=== PATIENT | male | born 1955 | race Caucasian/White ===

== ENCOUNTER → 2020-11-24 14:21 | Outpatient (CLI) | payer BC, SELFPAY ==
[2020-11-24 15:36] LABS: Basophils # 0.1 K/mm3 (0-0.2); Basophils % 1.1 % (0.1-2.0); Eosinophils # 0.4 K/mm3 (0.0-0.4); Eosinophils % 6.6 % (0.1-12.0); Hematocrit 50.6 % (42.0-52.0); Lymphocytes # 1.5 K/mm3 (0.7-4.5); Lymphocytes % 26.2 % (10-50); Mean Corpuscular HGB Conc 33.6 g/dL (31.8-35.4); Mean Corpuscular Hemoglobin 32.3 pg (27.0-31.2); Mean Corpuscular Volume 96.1 fl (80-94); Monocytes # 0.5 K/mm3 (0.1-1.0); Monocytes % 8.6 % (1.7-9.3); Neutrophils # 3.3 K/mm3 (1.8-7.8); Neutrophils % 57.5 % (37.0-80.0); Platelet Count 186 K/mm3 (142-424); Red Blood Count 5.27 M/mm3 (4.60-6.20); Red Cell Distribution Width 13.4 % (11.5-17.5); White Blood Count 5.7 K/mm3 (4.8-10.8)
[2020-11-24 15:40] LABS: Alanine Aminotransferase 30 U/L (12-78); Albumin Level 4.2 g/dl (3.5-5.0); Albumin/Globulin Ratio 1.6 (1.1-1.8); Alkaline Phosphatase 98 U/L (38-126); Anion Gap 10.3 mEq/L (5-15); Aspartate Amino Transferase 29 U/L (17-59); Bilirubin,Total 1.1 mg/dl (0.2-1.3); Blood Urea Nitrogen 21 mg/dl (9-20); Calcium 9.6 mg/dl (8.4-10.2); Carbon Dioxide 25 mmol/L (22.0-30.0); Chloride 108 mmol/L (98-107); Chol/HDL Ratio 3.5 (1-3.5); Cholesterol 105 mg/dl (140-200); Estimated Glomerular Filt Rate 85 ml/min (>60); GFR (African American) 103 ML/MIN (>60); Globulin 2.7 g/dL (1.3-3.2); Glucose 165 mg/dl (74-100); HDL Cholesterol 30 mg/dl (40-60); Potassium 4.3 mmoL/L (3.5-5.1); Sodium 139 mmol/L (136-145); Total Protein,Serum 6.9 g/dl (6.3-8.2); Triglycerides 126 mg/dl (30-150); VLDL Cholesterol 25 mg/dL (0-40)
[2020-11-24 17:09] LABS: Hemoglobin A1C 8.6 % (4.0-6.0)
[2020-11-26 18:14] LABS: Prostate Specific Ag 0.4 ng/mL (0.0-4.0)
== END ==
PROVIDERS: Visit Provider Family Medicine
DX: E11.9 Type 2 diabetes mellitus without complications (principal); E78.5 Hyperlipidemia, unspecified; I10 Essential (primary) hypertension; Z72.0 Tobacco use; Z79.84 Long term (current) use of oral hypoglycemic drugs; Z12.5 Encounter for screening for malignant neoplasm of prostate
CPT/HCPCS: 80053; 80061; 83036; 84153; 84154; 85025

== ENCOUNTER → 2020-12-13 14:42 | Outpatient (CLI) | payer BC, SELFPAY ==
[2020-12-13 17:08] LABS: Coronavirus 19 IgG Antibody Negative (Negative); Coronavirus 19 IgM Antibody Negative (Negative)
== END ==
PROVIDERS: PCP Family Medicine; Visit Provider Internal Medicine Gastroenterology
DX: Z01.812 Encounter for preprocedural laboratory examination (principal); Z20.822 Contact with and (suspected) exposure to COVID-19; Z12.11 Encounter for screening for malignant neoplasm of colon
CPT/HCPCS: 36415; 86328

== ENCOUNTER 2020-12-15 08:31 | Day surgery (SDC) | payer BC, SELFPAY ==
[2020-12-12 08:39] VITALS: BMI 29.4
[2020-12-15] VITALS (8 sets, daily range): BP systolic 112–143; BP diastolic 75–89; PULSE 47–57; RESP 18; TEMP 36.2–36.6; O2SAT 95–97
[2020-12-15 09:20] LABS: POC Glucose,Bedside 107 (70-110)
--- NOTE | 2020-12-15 09:57 | P.PN_ITS ---
[facility] Anesthesia Checklist - Patient Identification Patient Identification: Arm Band - Structural Data Admitted From: Home Planned Operative Procedure/s: colonoscopy Consent for Planned Operative Procedure(s) Verified: Yes Verified Documents: Surgical Consent, History and Physical - NPO Status Verified Time NPO: 00:00 - Additional verifications Anesthesia Reactions: No - Airway Assessment C-Spine Mobility Assessed: Yes (mp3) TMJ Mobility Assessed: Yes Dentition: Good Dentition - Neurological Assessment Level of Consciousness: Awake, Alert - Anesthesia Plan Anesthesia Risk discussed: Yes Anesthesia Plan: Verified ASA Class: III Anesthesia Type: MAC [facility] History I have reviewed the patient's past medical history: Yes Medical History: Reports:: Asthma, Coronary Artery Disease, Diabetes Mellitus Type 2, Gastroesophageal Reflux Disease(GERD), Hyperlipidemia, Hypertension Denies:: Cancer, Diabetes Mellitus Type 1, Internal Pacemaker, MRSA, Seizures *Have you ever received a pneumonia vaccine?: No *Have you received a flu vaccine this season?: No Anesthesia experience/problems:: nac Laterality Cases: Right: Total Knee Replacement Other Surgeries: Yes: Hernia Repair, Other. No: Pacemaker Amputation: No Fractures: No - *Social History Last grade of school completed: Some college Smoking Status: Current every day smoker Tobacco Type: cigarettes # Packs/Day (cigarettes): 1 Alcohol Intake: never Substance Use Type: denies use *Occupational Status:: employed *Travel in the last 8 weeks: None Family Hx:: No significant family history
--- NOTE | 2020-12-15 10:18 | P.PCN_ITS ---
[facility] Procedure Note Procedure Note:: Colonoscopy Procedure Report: Colonoscopy with cold snare polypectomy and hemorrhoid band ligation Endoscopist: Zoran Macias II, MD Referring physician: Ortzi Cavazos MD Date of Procedure: December 15, 2020 Equipment: Olympus 180 variable stiffness pediatric colonoscope Sedation: MAC sedation Indication: Mr. Hudson is a 65-year-old gentleman with rectal bleeding over the last 2 weeks. This was blood in the commode as well as on the toilet tissue. This was new. The patient has had in the past extremely rare spotting of blood on the toilet tissue. He does get some intermittent gassiness. He had initiated Metformin and lost between 5 and 10 pounds. He reports no abdominal pain, change in his bowel habits or family history of colon cancer. This is his first colonoscopy which is done for diagnostic purposes. Procedure: Prior to the procedure, a history and physical exam was performed, and patient's medications and allergies were reviewed. The risks, benefits and alternatives of the sedation and procedure were discussed with the patient. All questions were answered and informed consent was obtained. The patient was brought to the procedure room. Patient identification and proposed procedure were verified by the physician and the nurse. The patient was placed in a left lateral decubitus position and the scope was passed under direct vision. Throughout the procedure, the patient's blood pressure, pulse, and oxygen saturations were monitored continuously. The colonoscopy was accomplished without difficulty. The patient tolerated the procedure well. Findings: On digital rectal examination there was normal rectal tone. There were no external hemorrhoids. The prostate was moderately firm and mildly asymmetric without nodules. The colonoscope was introduced through the anal canal to the rectum and advanced to the cecum. The ileocecal valve and appendiceal orifice w ere identified. The scope was advanced a short distance into the ileum which appeared grossly normal. The scope was then withdrawn into the colon. There were 4 colon polyps (cecum x1 (5 mm), transverse x1 (4 mm), descending x1 (4 mm) and rectosigmoid x1 (5 mm)) which were all removed via cold snare polypectomy. There were scattered diverticuli throughout the descending and sigmoid colon (LEFT colon). The rectum itself was normal. Upon retroflexion within the rectum there were grade 2 internal hemorrhoids. These hemorrhoids were banded (3 columns) with 3 bands with excellent ligation effect. The preparation was excellent throughout with [place] Preparation Score of 9. The cecal time was 15 minutes. Impression: 1. Colonic polyps x4 2. Left-sided diverticulosis 3. Grade 2 internal hemorrhoids status post band ligation x3 4. Firm/mildly asymmetric prostate Plan: I will follow up the polyp pathology and recommend repeat colonoscopy again in 5 years based upon the polyp histology. I would encourage bulk fiber supplementation on a long-term daily maintenance basis.
== END 2020-12-15 11:22 | disposition home or self-care (01) ==
LOC: OUTP 08:32
PROVIDERS: PCP Family Medicine; Visit Provider Internal Medicine Gastroenterology
PROC: 0DJD8ZZ Inspection of Lower Intestinal Tract, Via Natural or Artificial Opening Endoscopic (ICD-10-PCS; CPT 45378; principal; 2020-12-15 09:30)
DX: K63.5 Polyp of colon; K57.30 Diverticulosis of large intestine without perforation or abscess without bleeding; K64.1 Second degree hemorrhoids; J45.909 Unspecified asthma, uncomplicated; E11.9 Type 2 diabetes mellitus without complications; I25.10 Atherosclerotic heart disease of native coronary artery without angina pectoris; K21.9 Gastro-esophageal reflux disease without esophagitis; E78.5 Hyperlipidemia, unspecified; I10 Essential (primary) hypertension; Z72.0 Tobacco use; Z79.82 Long term (current) use of aspirin; Z79.899 Other long term (current) drug therapy
CPT/HCPCS: 45385; 45398; 82962

== ENCOUNTER → 2021-01-08 14:41 | Outpatient (CLI) | payer BC, SELFPAY ==
[2021-01-08 18:03] LABS: Basophils % 0.7 % (0.1-2.0); Eosinophils # 0.2 K/mm3 (0.0-0.4); Eosinophils % 3.6 % (0.1-12.0); Hematocrit 47.2 % (42.0-52.0); Hemoglobin 16.1 g/dL (14.1-18.0); Lymphocytes % 15.2 % (10-50); Mean Corpuscular HGB Conc 34.1 g/dL (31.8-35.4); Mean Corpuscular Hemoglobin 31.8 pg (27.0-31.2); Mean Corpuscular Volume 93.4 fl (80-94); Mean Platelet Volume 10.9 fl (7.4-10.4); Monocytes # 0.4 K/mm3 (0.1-1.0); Monocytes % 6.7 % (1.7-9.3); Neutrophils # 4.8 K/mm3 (1.8-7.8); Neutrophils % 73.9 % (37.0-80.0); Platelet Count 210 K/mm3 (142-424); Red Blood Count 5.06 M/mm3 (4.60-6.20); Red Cell Distribution Width 13.3 % (11.5-17.5); White Blood Count 6.5 K/mm3 (4.8-10.8)
[2021-01-08 18:27] LABS: Chloride 111 mmol/L (98-107)
[2021-01-08 18:28] LABS: Potassium 4.5 mmoL/L (3.5-5.1); Sodium 141 mmol/L (136-145)
[2021-01-08 18:30] LABS: Blood Urea Nitrogen 21 mg/dl (9-20)
[2021-01-08 18:31] LABS: Alanine Aminotransferase 24 U/L (12-78); Albumin Level 4.3 g/dl (3.5-5.0); Albumin/Globulin Ratio 1.6 (1.1-1.8); Alkaline Phosphatase 90 U/L (38-126); Anion Gap 12.5 mEq/L (5-15); Aspartate Amino Transferase 23 U/L (17-59); Bilirubin,Total 0.7 mg/dl (0.2-1.3); Calcium 9.6 mg/dl (8.4-10.2); Carbon Dioxide 22 mmol/L (22.0-30.0); Cholesterol 99 mg/dl (140-200); Estimated Glomerular Filt Rate 98 ml/min (>60); GFR (African American) 118 ML/MIN (>60); Globulin 2.7 g/dL (1.3-3.2); Glucose 136 mg/dl (74-100); Triglycerides 86 mg/dl (30-150); VLDL Cholesterol 17 mg/dL (0-40)
[2021-01-08 18:32] LABS: Chol/HDL Ratio 3.2 (1-3.5); HDL Cholesterol 31 mg/dl (40-60)
[2021-01-08 18:42] LABS: Direct LDL Cholesterol 49.94 mg/dL (100-129)
[2021-01-08 19:02] LABS: Thyroid Stimulating Hormone 1.86 uIU/mL (0.465-4.68)
[2021-01-08 19:35] LABS: Hemoglobin A1C 6.8 % (4.0-6.0)
== END ==
PROVIDERS: Visit Provider Family Medicine
DX: E11.9 Type 2 diabetes mellitus without complications (principal); Z79.84 Long term (current) use of oral hypoglycemic drugs; I10 Essential (primary) hypertension; E78.5 Hyperlipidemia, unspecified
CPT/HCPCS: 80053; 80061; 83036; 84436; 84443; 85025

== ENCOUNTER → 2022-02-21 08:04 | Outpatient (CLI) | payer BC, SELFPAY ==
[2022-02-21 14:17] LABS: Alanine Aminotransferase 26 U/L (12-78); Albumin Level 4.3 g/dl (3.5-5.0); Albumin/Globulin Ratio 1.7 (1.1-1.8); Alkaline Phosphatase 75 U/L (38-126); Anion Gap 10.6 mEq/L (5-15); Aspartate Amino Transferase 28 U/L (17-59); Bilirubin,Total 0.9 mg/dl (0.2-1.3); Blood Urea Nitrogen 19 mg/dl (9-20); Calcium 9.2 mg/dl (8.4-10.2); Carbon Dioxide 26 mmol/L (22.0-30.0); Chloride 109 mmol/L (98-107); Chol/HDL Ratio 3.5 (1-3.5); Cholesterol 102 mg/dl (140-200); Estimated Glomerular Filt Rate 85 ml/min (>60); GFR (African American) 103 ML/MIN (>60); Globulin 2.6 g/dL (1.3-3.2); Glucose 144 mg/dl (74-100); HDL Cholesterol 29 mg/dl (40-60); Potassium 4.6 mmoL/L (3.5-5.1); Sodium 141 mmol/L (136-145); Total Protein,Serum 6.9 g/dl (6.3-8.2); Triglycerides 108 mg/dl (30-150); VLDL Cholesterol 22 mg/dL (0-40)
[2022-02-21 14:29] LABS: Basophils # 0.1 K/mm3 (0-0.2); Eosinophils # 0.3 K/mm3 (0.0-0.4); Eosinophils % 5.7 % (0.1-12.0); Hematocrit 48.9 % (42.0-52.0); Hemoglobin 16.3 g/dL (14.1-18.0); Lymphocytes # 0.8 K/mm3 (0.7-4.5); Lymphocytes % 15.4 % (10-50); Mean Corpuscular HGB Conc 33.4 g/dL (31.8-35.4); Mean Corpuscular Hemoglobin 32.1 pg (27.0-31.2); Mean Corpuscular Volume 96.1 fl (80-94); Mean Platelet Volume 11.6 fl (7.4-10.4); Monocytes # 0.4 K/mm3 (0.1-1.0); Monocytes % 7.4 % (1.7-9.3); Neutrophils # 3.7 K/mm3 (1.8-7.8); Neutrophils % 70.5 % (37.0-80.0); Platelet Count 226 K/mm3 (142-424); Red Blood Count 5.09 M/mm3 (4.60-6.20); Red Cell Distribution Width 13.6 % (11.5-17.5); White Blood Count 5.3 K/mm3 (4.8-10.8)
[2022-02-21 14:34] LABS: 25-OH Vitamin D, Total 23.4 ng/mL (30-100); Hemoglobin A1C 6.5 % (4.0-6.0)
[2022-02-21 14:35] LABS: T4 (Thyroxine) 9.3 ug/dl (5.53-11.0)
[2022-02-23 18:12] LABS: C-Peptide 3.7 ng/mL (1.1-4.4)
== END ==
PROVIDERS: Visit Provider Family Medicine
DX: E11.9 Type 2 diabetes mellitus without complications (principal); E55.9 Vitamin D deficiency, unspecified; Z79.84 Long term (current) use of oral hypoglycemic drugs; Z79.899 Other long term (current) drug therapy
CPT/HCPCS: 80053; 80061; 82306; 83036; 84436; 84443; 84681; 85025

== ENCOUNTER → 2022-09-13 14:25 | Outpatient (CLI) | payer BC, SELFPAY ==
[2022-09-13 20:51] LABS: Alanine Aminotransferase 32 U/L (12-78); Albumin Level 4.3 g/dl (3.5-5.0); Albumin/Globulin Ratio 1.7 (1.1-1.8); Alkaline Phosphatase 131 U/L (38-126); Anion Gap 16.1 mEq/L (5-15); Aspartate Amino Transferase 28 U/L (17-59); Bilirubin,Total 1.1 mg/dl (0.2-1.3); Blood Urea Nitrogen 17 mg/dl (9-20); Calcium 9.6 mg/dl (8.4-10.2); Carbon Dioxide 24 mmol/L (22.0-30.0); Chloride 104 mmol/L (98-107); Chol/HDL Ratio 3.7 (1-3.5); Cholesterol 111 mg/dl (140-200); Estimated Glomerular Filt Rate 97 ml/min (>60); GFR (African American) 118 ML/MIN (>60); Globulin 2.6 g/dL (1.3-3.2); Glucose 128 mg/dl (74-100); HDL Cholesterol 30 mg/dl (40-60); Potassium 4.1 mmoL/L (3.5-5.1); Sodium 140 mmol/L (136-145); Total Protein,Serum 6.9 g/dl (6.3-8.2); Triglycerides 131 mg/dl (30-150); VLDL Cholesterol 26 mg/dL (0-40)
[2022-09-13 20:54] LABS: Basophils # 0.1 K/mm3 (0-0.2); Basophils % 1.1 % (0.1-2.0); Eosinophils # 0.5 K/mm3 (0.0-0.4); Eosinophils % 6.9 % (0.1-12.0); Hematocrit 47.8 % (42.0-52.0); Hemoglobin 15.7 g/dL (14.1-18.0); Lymphocytes # 1.2 K/mm3 (0.7-4.5); Lymphocytes % 17.2 % (10-50); Mean Corpuscular HGB Conc 32.8 g/dL (31.8-35.4); Mean Corpuscular Hemoglobin 31.8 pg (27.0-31.2); Mean Corpuscular Volume 96.8 fl (80-94); Mean Platelet Volume 11.7 fl (7.4-10.4); Monocytes # 0.6 K/mm3 (0.1-1.0); Monocytes % 8.5 % (1.7-9.3); Neutrophils # 4.6 K/mm3 (1.8-7.8); Neutrophils % 66.3 % (37.0-80.0); Platelet Count 214 K/mm3 (142-424); Red Blood Count 4.94 M/mm3 (4.60-6.20); Red Cell Distribution Width 13.6 % (11.5-17.5)
[2022-09-13 21:02] LABS: Direct LDL Cholesterol 59.98 mg/dL (100-129)
[2022-09-13 21:12] LABS: Hemoglobin A1C 6.7 % (4.0-6.0)
== END ==
PROVIDERS: PCP Family Medicine; Visit Provider Family Medicine
DX: E11.9 Type 2 diabetes mellitus without complications (principal); R53.83 Other fatigue; Z79.84 Long term (current) use of oral hypoglycemic drugs
CPT/HCPCS: 80053; 80061; 83036; 85025

== ENCOUNTER → 2023-07-04 00:16 | Outpatient (CLI) | payer MEDICARE, SELFPAY ==
[2023-07-03 19:10] LABS: Basophils # 0.1 K/mm3 (0-0.2); Basophils % 0.7 % (0.1-2.0); Eosinophils # 0.5 K/mm3 (0.0-0.4); Eosinophils % 6.6 % (0.1-12.0); Hematocrit 49.7 % (42.0-52.0); Lymphocytes # 1.3 K/mm3 (0.7-4.5); Mean Corpuscular HGB Conc 34.2 g/dL (31.8-35.4); Mean Corpuscular Hemoglobin 31.8 pg (27.0-31.2); Mean Platelet Volume 11.3 fl (7.4-10.4); Monocytes # 0.6 K/mm3 (0.1-1.0); Monocytes % 8.3 % (1.7-9.3); Neutrophils # 4.9 K/mm3 (1.8-7.8); Neutrophils % 66.4 % (37.0-80.0); Platelet Count 208 K/mm3 (142-424); Red Blood Count 5.34 M/mm3 (4.60-6.20); White Blood Count 7.4 K/mm3 (4.8-10.8)
[2023-07-03 19:35] LABS: Alanine Aminotransferase 36 U/L (12-78); Albumin Level 4.6 g/dl (3.5-5.0); Albumin/Globulin Ratio 1.6 (1.1-1.8); Alkaline Phosphatase 119 U/L (38-126); Anion Gap 17.3 mEq/L (5-15); Aspartate Amino Transferase 28 U/L (17-59); Bilirubin,Total 0.8 mg/dl (0.2-1.3); Blood Urea Nitrogen 15 mg/dl (9-20); Calcium 9.4 mg/dl (8.4-10.2); Carbon Dioxide 24 mmol/L (22.0-30.0); Chloride 105 mmol/L (98-107); Chol/HDL Ratio 3.7 (1-3.5); Cholesterol 100 mg/dl (140-200); Estimated Glomerular Filt Rate 85 ml/min (>60); GFR (African American) 102 ML/MIN (>60); Globulin 2.9 g/dL (1.3-3.2); Glucose 149 mg/dl (74-100); HDL Cholesterol 27 mg/dl (40-60); Potassium 4.3 mmoL/L (3.5-5.1); Sodium 142 mmol/L (136-145); Total Protein,Serum 7.5 g/dl (6.3-8.2); Triglycerides 185 mg/dl (30-150); VLDL Cholesterol 37 mg/dL (0-40)
[2023-07-03 19:47] LABS: Direct LDL Cholesterol 51.25 mg/dL (100-129)
[2023-07-03 20:06] LABS: Prostate Specific Ag Screen 0.5 ng/ml (0.0-4.0); Thyroid Stimulating Hormone 1.39 uIU/mL (0.465-4.68)
[2023-07-03 21:32] LABS: Hemoglobin A1C 9.2 % (4.0-6.0)
== END ==
PROVIDERS: PCP Family Medicine; Visit Provider Family Medicine
DX: Z00.00 Encounter for general adult medical examination without abnormal findings; E11.9 Type 2 diabetes mellitus without complications; N52.9 Male erectile dysfunction, unspecified; Z12.5 Encounter for screening for malignant neoplasm of prostate; Z79.84 Long term (current) use of oral hypoglycemic drugs
CPT/HCPCS: 80053; 80061; 83036; 84443; 85025; G0103

== ENCOUNTER → 2023-09-09 13:21 | Outpatient (CLI) | payer MEDICARE, SELFPAY ==
[2023-09-09 14:21] LABS: Basophils % 0.6 % (0.1-2.0); Eosinophils # 0.4 K/mm3 (0.0-0.4); Eosinophils % 6.6 % (0.1-12.0); Hematocrit 47.5 % (42.0-52.0); Hemoglobin 16.9 g/dL (14.1-18.0); Mean Corpuscular HGB Conc 35.5 g/dL (31.8-35.4); Mean Corpuscular Hemoglobin 33.1 pg (27.0-31.2); Mean Corpuscular Volume 93.4 fl (80-94); Mean Platelet Volume 9.9 fl (7.4-10.4); Monocytes # 0.5 K/mm3 (0.1-1.0); Monocytes % 7.8 % (1.7-9.3); Neutrophils # 4.7 K/mm3 (1.8-7.8); Neutrophils % 70.1 % (37.0-80.0); Platelet Count 201 K/mm3 (142-424); Red Blood Count 5.09 M/mm3 (4.60-6.20); Red Cell Distribution Width 13.4 % (11.5-17.5); White Blood Count 6.7 K/mm3 (4.8-10.8)
[2023-09-09 14:32] LABS: Anion Gap 14.2 mEq/L (5-15); Blood Urea Nitrogen 17 mg/dl (9-20); Calcium 9.2 mg/dl (8.4-10.2); Carbon Dioxide 23 mmol/L (22.0-30.0); Chloride 107 mmol/L (98-107); Estimated Glomerular Filt Rate 75 ml/min (>60); GFR (African American) 91 ML/MIN (>60); Glucose 147 mg/dl (74-100); Potassium 4.2 mmoL/L (3.5-5.1); Sodium 140 mmol/L (136-145)
== END ==
PROVIDERS: PCP Family Medicine; Visit Provider Surgery
DX: L72.3 Sebaceous cyst (principal); Z01.818 Encounter for other preprocedural examination
CPT/HCPCS: 36415; 80048; 85025

== ENCOUNTER 2023-09-25 09:33 | Day surgery (SDC) | payer MEDICARE, SELFPAY ==
[2023-09-23 14:53] VITALS: BMI 30.1
[2023-09-25 09:51] VITALS: BP 122/78; PULSE 70; RESP 18; TEMP 36.8; O2SAT 97
[2023-09-25 10:18] LABS: POC Glucose,Bedside 125 (70-110)
--- NOTE | 2023-09-25 10:51 | EXP.OP.NOTE ---
Date of procedure: 09/25/23 Pre-op Diagnosis:: Posterior neck cyst with recent abscess Post-op Diagnosis:: Same Procedure performed:: Excision of recently-abscessed posterior neck cyst Surgeon:: Jaydon Fuchs MD Anesthesia: local Estimated blood loss (mL): 15 Operative findings:: Lesion excised in toto Incision loosely closed with single suture to facilitate drainage Operative note:: After informed consent was obtained the patient was taken to the procedure room. He was maintained in a seated position. His posterior neck was prepped and draped in a sterile fashion. After infiltration local anesthetic an elliptical incision was made around the lesion. The lesion was excised in toto and passed off for pathologic evaluation. Electrocautery was utilized to achieve hemostasis. The incision was loosely closed centrally with a single stitch to allow for continued drainage. Dressings were applied and the patient was discharged home in good condition. Condition: stable Disposition: no change Specimens:: Posterior neck cyst with recent abscess Complications:: No immediate
[2023-09-25 11:01] VITALS: BP 135/92; PULSE 64; RESP 17; TEMP 36.8; O2SAT 95
[2023-09-25 11:07] VITALS: BP 135/92; PULSE 64; RESP 17; TEMP 36.8; O2SAT 95
== END 2023-09-25 11:10 | disposition home or self-care (01) ==
PROVIDERS: PCP Family Medicine; Visit Provider Surgery
PROC: (CPT 11426; principal; 2023-09-25 11:00)
DX: L72.0 Epidermal cyst (principal); E11.9 Type 2 diabetes mellitus without complications
CPT/HCPCS: 11426; 82962; 88304

== ENCOUNTER 2024-08-05 09:46 | Outpatient (CLI) | payer MEDICARE, SELFPAY ==
[2024-08-05 18:51] LABS: Basophils # 0.1 K/mm3 (0-0.2); Eosinophils # 0.4 K/mm3 (0.0-0.4); Eosinophils % 6.8 % (0.1-12.0); Hematocrit 54.3 % (42.0-52.0); Hemoglobin 17.6 g/dL (14.1-18.0); Lymphocytes # 0.9 K/mm3 (0.7-4.5); Lymphocytes % 14.9 % (10-50); Mean Corpuscular HGB Conc 32.4 g/dL (31.8-35.4); Mean Corpuscular Hemoglobin 32.5 pg (27.0-31.2); Mean Corpuscular Volume 100.4 fl (80-94); Mean Platelet Volume 11.5 fl (7.4-10.4); Monocytes # 0.4 K/mm3 (0.1-1.0); Monocytes % 7.1 % (1.7-9.3); Neutrophils # 4.3 K/mm3 (1.8-7.8); Neutrophils % 70.2 % (37.0-80.0); Platelet Count 206 K/mm3 (142-424); Red Blood Count 5.41 M/mm3 (4.60-6.20); Red Cell Distribution Width 13.7 % (11.5-17.5); White Blood Count 6.2 K/mm3 (4.8-10.8)
[2024-08-05 19:36] LABS: Alanine Aminotransferase 29 U/L (12-78); Alkaline Phosphatase 81 U/L (38-126); Aspartate Amino Transferase 27 U/L (17-59); Bilirubin,Total 0.8 mg/dl (0.2-1.3); Blood Urea Nitrogen 19 mg/dl (9-20); Calcium 8.9 mg/dl (8.4-10.2); Chloride 110 mmol/L (98-107); Chol/HDL Ratio 3.5 (1-3.5); Cholesterol 112 mg/dl (140-200); Estimated Glomerular Filt Rate 97 ml/min (>60); GFR (African American) 117 ML/MIN (>60); Glucose 127 mg/dl (74-100); HDL Cholesterol 32 mg/dl (40-60); Potassium 4.1 mmoL/L (3.5-5.1); Sodium 139 mmol/L (136-145); Total Protein,Serum 6.7 g/dl (6.3-8.2); Triglycerides 128 mg/dl (30-150); VLDL Cholesterol 26 mg/dL (0-40)
[2024-08-05 19:37] LABS: Albumin Level 4.2 g/dl (3.5-5.0); Albumin/Globulin Ratio 1.7 (1.1-1.8); Anion Gap 12.1 mEq/L (5-15); Carbon Dioxide 21 mmol/L (22.0-30.0); Globulin 2.5 g/dL (1.3-3.2)
[2024-08-05 19:46] LABS: Direct LDL Cholesterol 61.83 mg/dL (100-129)
[2024-08-05 20:06] LABS: Prostate Specific Ag Screen 0.6 ng/ml (0.0-4.0)
== END 2024-08-05 23:59 | disposition home or self-care (01) ==
LOC: LAB.DROPOF 08-06 14:58
PROVIDERS: PCP Family Medicine; Visit Provider Family Medicine
DX: I25.10 Atherosclerotic heart disease of native coronary artery without angina pectoris (principal); Z12.5 Encounter for screening for malignant neoplasm of prostate; E11.9 Type 2 diabetes mellitus without complications
CPT/HCPCS: 80053; 80061; 85025; G0103

== ENCOUNTER 2025-07-14 13:00 | Outpatient (CLI) | payer MEDICARE, SELFPAY ==
[2025-07-14 14:48] LABS: Hematocrit 47.0 % (42.0-52.0); Hemoglobin 16.6 g/dL (14.1-18.0); Immature Granulocytes % 0.3 %; Mean Corpuscular HGB Conc 35.3 g/dL (31.8-35.4); Mean Corpuscular Hemoglobin 32.8 pg (27.0-31.2); Mean Corpuscular Volume 92.9 fl (80-94); Nucleated Red Blood Cells % 0 %; Platelet Count 194 K/mm3 (142-424); Red Blood Count 5.06 M/mm3 (4.60-6.20); Red Cell Distribution Width-SD 43.9 fL; White Blood Count 6.4 K/mm3 (4.8-10.8)
[2025-07-14 15:13] LABS: Albumin Level 4.3 g/dl (3.5-5.0); Chloride 112 mmol/L (98-107); Potassium 4.2 mmoL/L (3.5-5.1); Sodium 140 mmol/L (136-145)
[2025-07-14 15:15] LABS: Alanine Aminotransferase 27 U/L (12-78); Aspartate Amino Transferase 30 U/L (17-59); Blood Urea Nitrogen 22 mg/dl (9-20); Creatinine,Serum 0.80 mg/dl (0.66-1.25); Estimated Glomerular Filt Rate 96 ml/min (>60); GFR (African American) 117 ML/MIN (>60)
[2025-07-14 15:16] LABS: Albumin/Globulin Ratio 1.7 (1.1-1.8); Alkaline Phosphatase 79 U/L (38-126); Anion Gap 9.2 mEq/L (5-15); Bilirubin,Total 0.7 mg/dl (0.2-1.3); Calcium 9.3 mg/dl (8.4-10.2); Carbon Dioxide 23 mmol/L (22.0-30.0); Cholesterol 104 mg/dl (140-200); Globulin 2.5 g/dL (1.3-3.2); Glucose 146 mg/dl (74-100); HDL Cholesterol 28 mg/dl (40-60); Total Protein,Serum 6.8 g/dl (6.3-8.2); Triglycerides 127 mg/dl (30-150)
[2025-07-14 15:35] LABS: 25-OH Vitamin D, Total 27.9 ng/mL (30-100)
[2025-07-14 15:46] LABS: Thyroid Stimulating Hormone 1.57 uIU/mL (0.465-4.68)
[2025-07-14 16:04] LABS: Hepatitis C Ab Qual. W/ RFX NEGATIVE (Negative)
[2025-07-14 16:05] LABS: Vitamin B12 243 pg/mL (239-931)
--- OUTSIDE RECORDS SUMMARY | 2025-07-18 09:31 | XMS_ITS | Encounter Summary ---
Author Organization [place] [address] Care Team Providers Care Anatomy Teacher Name Role Phone ChiangTerry MD Unavailable Sharif Cavazos MD Primary Care Provider [phone] Encounter Details Date Type Department Care Team (Late st Contact Info) Description 10/11/2008 Orders Only [facility] [place] [address] [place] [address] Ortiz Orantes MD Social History Tobacco Use Types Packs/Day Years Used Date Smoking Tobacco: Never Assessed Sex and Gender Information Value Date Recorded Sex Assigned at Not on file Legal Sex Male 5:22 AM EDT Gender Identity Not on file Sexual Orientation Not on file documented as of this encounter Plan of Treatment Not on file documented as of this encounter Procedures Procedure Name Priority Date/Time Associated Diagnosis Comments ECHO - HISTORICAL Routine 10/11/2008 12: 00 AM EST documented in this encounter Results * ECHO - HISTORICAL (10/11/2008 12:00 AM EST) Anatomical Region Laterality Modality Other 10/11/2008 Narrative 11/13/2011 1:51 AM EST NOTICE: This report was electronically copied on 12/27/2011 from historical data generated by a practice prior to that practice using [facility] for Medical Records. Performing Provider: SHARRON us Ortiz Orantes MD IMG ECHO ORDERABLES Final Res ult documented in this encounter Visit Diagnoses Not on filedocumented in this encounter Care Teams Anatomy Teacher Relationship Specialty Start Date End Date Sharif Cavazos MD [address] [place] [address] [place] [address] PCP - General Family Medicine 08/25/12 Terry Chiang MD [address] [place] [address] [place] [address] Physician Internal Medicine-Cardiovascular Disease 07/07/12 documented as of this encounter
--- OUTSIDE RECORDS SUMMARY | 2025-07-18 09:31 | XMS_ITS | Encounter Summary ---
Author Organization [facility] Address [address] [place] [id number] Care Team Providers Care Welt Wheeler Name Role Phone Sharif Cavazos MD Primary Care Provider [phone] Source Comments This information has been disclosed to you from confidential records protectfrom disclosure by state law. You shall make no further disclosure of thisinformation without the specific, written, and informed release of theindividual to whom it pertains, or as otherwise permitted by law. A generalauthorization for the release of medical or other information is not sufficientfor the purposes of the release of HIV test results or diagnoses. [id number] Encounter Details Date Type Department Care Team (Late st Contact Info) Description 03/24/2018 Orders Only [facility] [address] [place] [id number] Matt Gardner MD Social History Tobacco Use Types Packs/Day Years Used Date Smoking Tobacco: Never Assessed Sex and Gender Information Value Date Recorded Sex Assigned at Not on file Legal Sex Male 8:09 PM EST Gender Identity Not on file Sexual Orientation Not on file documented as of this encounter Progress Notes * Matt Gardner MD - 03/24/2018 11:59 PM EDT Pathology reviewed. Benign lesion. Please call patient with no additional treatment needed. * Marly Prado MA - 03/24/2018 11:59 PM EDT Informed patient of both results. documented in this encounter Plan of Treatment Not on file documented as of this encounter Procedures Procedure Name Priority Date/Time Associated Diagnosis Comments SKIN / NAIL BIOPSY 03/24/2018 3: 45 PM EDT documented in this encounter Results * Skin / nail biopsy (03/24/2018 3:45 PM EDT) 03/24/2018 3:45 PM EDT 03/24/2018 3:45 PM EDT Narrative [facility] - 03/26/2018 12:59 PM EDT Accession Number: [id number] Biopsy Site: B) L buttock Biopsy Date: 03/24/2018 Impression: R/O irritated skin tag Gross Description: A specimen of skin was received [id number] MICRO EXAM: There is a somewhat polypoid lesion with numerous blood-filled vessels and overlying epidermal hyperplasia. DIAGNOSIS: Consistent with hemangioma. ICD-10: L98.9 PATHOLOGIST: Electronically signed by: Kiara Baltazar MD Procedure Note Unknown, Attending Provider - 03/26/2018 Accession Number: [id number] Biopsy Site: B) L buttock Biopsy Date: 03/24/2018 Impression: R/O irritated skin tag Gross Description: A specimen of skin was received [id number] MICRO EXAM: There is a somewhat polypoid lesion with numerous blood-filled vesselsand overlying epidermal hyperplasia. DIAGNOSIS: Consistent with hemangioma. ICD-10: L98.9 PATHOLOGIST: Electronically signed by: Kiara Baltazar MD Matt Gardner MD DERM PROCEDURE ORDERABLES Fin al Result [facility] documented in this encounter Visit Diagnoses Not on filedocumented in this encounter Care Teams Welt Wheeler Relationship Specialty Start Date End Date Sharif Cavazos MD [address] [place] [id number] PCP - General Family Medicine 03/24/18 documented as of this encounter
--- OUTSIDE RECORDS SUMMARY | 2025-07-18 09:31 | XMS_ITS | Clinical Summary ---
Author Organization [facility] Address [address] [facility] [place] [address] Phone Care Team Providers Care Columnist Name Role Phone Terry Chiang MD Unavailable Sharif Cavazos MD Primary Care Provider [phone] Allergies Active Allergy Reactions Criticality Noted Date Comments Penicillins 07/21/2012 Doesn't know-happened as a child Medications famotidine (PEPCID) 20 mg tabletIndications: heartburn prevention Take by mouth nightly. Indications: treatment to prevent heartburn Active calcium carbonate (TUMS) 200 mg calcium (500 mg) Oral Tablet, Chewable Take 1 Tab by mouth daily as needed for Heartburn. Active amLODIPine-benazep ril (LOTREL) 10-20 mg Oral Capsule Take 1 Cap by mouth daily. Active nitroGLYCERIN (NITROSTAT) 0.4 mg SL Tablet, Sublingual PLACE 1 TABLET UBDER TONGUE AT FIRST SIGN OF CHEST PAIN, MAY REPEAT UP TO 3 DOSES WITHIN A 15 MINUTE PERIOD, IF NO RELIEF GO TO ER. 25 Tab 3 7 Active metFORMIN (GLUCOPHAGE) 500 mg Oral Tablet Take 500 mg by mouth 2 times daily. Active oxyCODONE (ROXICODONE) 5 mg Oral Tablet Take 1-2 tablets by mouth every 8 hours as needed for pain 40 Tablet 10/02/2022 11:24 AM EST 2 Active traMADoL (ULTRAM) 50 mg Oral Tablet Take 1-2 tablets by mouth every 8 hours as needed for pain 40 Tablet 10/02/2022 11:24 AM EST 2 Active tiZANidine (ZANAFLEX) 2 mg Oral Tablet Take 1 Tablet by mouth every 8 hours as needed. 60 Tablet 10/02/2022 11:24 AM EST 2 Active aspirin 325 mg Oral Tablet, Delayed Release (E.C.) Take 1 Tablet by mouth daily. 30 Tablet 10/02/2022 11:24 AM EST 2 Active acetaminophen (TYLENOL) 500 mg Oral Tablet Take 2 Tablets by mouth every 8 hours as needed for Pain. 60 Tablet 10/02/2022 11:24 AM EST 2 Active aspirin 81 mg Oral Tablet, Chewable Take 81 mg by mouth daily. Active FARXIGA 10 mg Oral Tablet Take 10 mg by mouth daily. 3 Active XARELTO 2.5 mg Oral Tablet TAKE 1 TABLET TWICE A DAY 180 Tablet 3 4 Active bisoprolol (ZEBETA) 5 mg Oral TabletIndications: Essential hypertension,Pure hypercholesterolem ia,Mitral valve insufficiency, unspecified etiology TAKE 1 TABLET DAILY 90 Tablet 3 4 Active atorvastatin (LIPITOR) 40 mg Oral TabletIndications: Hyperlipidemia, unspecified hyperlipidemia type TAKE 1 TABLET DAILY 90 Tablet 3 4 Active Hospital, Clinic, or Other Facility Administered Medication Ordered Dose Route Frequency Start Date End Date Status triamcinolone acetonide (KENALOG-40) injection 1 mgIndications:History of left knee replacement 1 mg IAtc 04/18/2021 Active lidocaine 1% 10 mg/mL (1 %) injection 2 mLIndications:History of left knee replacement 2 mL IAtc 04/18/2021 Active Active Problems Problem Noted Date Diagnosed Date Primary osteoarthritis of left hip 10/04/2022 Hip pain 10/01/2022 History of left knee replacement 04/18/2021 Localized osteoarthritis of left knee 02/14/2021 Primary localized osteoarthritis of knee 021 Coronary artery disease invo lving rincon coronary artery of rincon heart without angina pectoris 01/31/2017 Hyperlipidemia 08/21/2012 Hypertension 08/21/2012 Mitral regurgitation 08/21/2012 Tobacco use 08/21/2012 Obesity 08/21/2012 Surgical History Surgery Date Site/Laterality Comments PILONIDAL CYST EXCISION UMBILICAL HERNIA REPAIR 10/29/2013 Abdomen/N/A UMBILICAL HERNIA REPAIR WITH MESH; Surgeon: Mireya Silvestre MD; Location: [facility]IN OR; Service: General Medical devices from this surgery are in the Medical Devices section. CORONARY ANGIOPLASTY 08/14/2016 stent to OM1 CARDIAC CATHETERIZATION TOTAL KNEE ARTHROPLASTY 01/30/2017 Right RIGHT TOTAL KNEE REPLACEMENT; Surgeon: Edgar Mckeon MD; Location: [facility]; Service: Orthopedics Medical devices from this surgery are in the Medical Devices section. HERNIA REPAIR COLONOSCOPY UPPER GASTROINTESTINAL ENDOSCOPY JOINT REPLACEMENT 02/13/2021 Left LEFT TOTAL KNEE REPLACEMENT; Surgeon: Edgar Mckeon MD; Location: [facility]; Service: Orthopedics Medical devices from this surgery are in the Medical Devices section. HIP ARTHROPLASTY 10/01/2022 Hip/Left LEFT TOTAL HIP REPLACEMENT ; Surgeon: Edgar Mckeon MD; Location: [facility]; Service: Orthopedics Medical devices from this surgery are in the Medical Devices section. Medical History Medical History Date Comments Tobacco use 08/21/2012 Obesity 08/21/2012 Hypertension 08/21/2012 Mitral regurgitation 08/21/2012 CAD (coronary artery disease) 08/2016 st ent Heartburn Post-operative nausea and vomiting Hyperlipidemia Arthritis Diabetes mellitus (HCC) Family History Medical History Relation Name Comments Heart Disease Father Heart Disease Mother Anesth Problems Neg Hx Relation Name Status Comments Father Mother Alive Social History Tobacco Use Types Packs/Day Years Used Date Smoking Tobacco: Every Day Cigarettes 0.5 45.3 Started: 02/06/1980; Last attempted to quit: 09/03/2022 Smokeless Tobacco: Never Tobacco Cessation:Ready to Q uit: Not Asked; Counseling Given: Not Answered Alcohol Use Standard Drinks/Week Comments No 0 (1 standard drink = 0.6 oz pur e alcohol) Sex and Gender Information Value Date Recorded Sex Assigned at Not on file Legal Sex Male 5:22 AM EDT Gender Identity Not on file Sexual Orientation Not on file Obstetrics History Last Filed Vital Signs Vital Sign Reading Time Taken Comments Blood Pressure 122/72 02/01/2025 3:06 PM EDT Pulse 70 02/01/2025 3:06 PM EDT Temperature 36.6 C (97.8 F) 10/02/2022 7:54 AM EST Respiratory Rate 16 10/02/2022 7:54 AM EST Oxygen Saturation 98% 02/01/2025 3:06 PM EDT Inhaled Oxygen Concentration - - Weight 95.3 kg (210 lb) 02/01/2025 3:06 PM EDT Height 177.8 cm (5' 10 ) 02/01/2025 3:06 PM EDT Body Mass Index 30.13 02/01/2025 3:06 PM EDT Plan of Treatment Health Maintenance Due Date Last Done Comments Wellness Exam Medicare 1960 Diabetic Eye Exam 1975 Hepatitis C Screening 1975 Kidney Health: uACR 1975 Pneumococcal Vaccine 50+ (1 of 2 - PCV) 1976 DTaP/TDaP/Td (1 - Tdap) 01/17/1997 01/16/1997 Cologuard 2002 Colon Cancer Screening 2002 Colonoscopy 2002 FIT 2002 Sigmoidoscopy 2002 Virtual Colonography 2002 Low Dose Lung Cancer Screening 2007 Zoster (1 of 2) 2007 RSV or 60+ (1 - Risk 60-74 years 1-dose series) 2017 Lipids 04/09/2020 04/09/2019, 12/12, 08/08/2017, Additional history exists Kidney Health: eGFR 02/05/2022 02/05/2021, 11/07/2020, 04/09/2019, Additional history exists Hemoglobin A1c 03/31/2023 10/01/2022, 11/07/2020 COVID-19 Vaccine ( - season) 2025 Influenza Vaccine (#1) 2025 AAA Screening Completed 04/16/2022 Hepatitis B Vaccine Aged Out No longe r eligible based on patient's age to complete this topic Meningococcal B Vaccine Aged Out No l onger eligible based on patient's age to complete this topic Medical Devices Implanted Type Area [employer]ed [employer] Device Identifier Shelf Expiration Date Model / Serial / Lot Patch Hernia St Ventralex Small Webster With Strap 3.2 - [id number] Implanted:Qty: 1 on 10/29/2013 by Mireya Silvestre MD at [facility] N/A: Abdomen CR BARD:DAVOL [id number] 08/10/2015 [id number] / / [id number] Stent Synergy(Mr) Everolimus-Elut ing 3.50mm X 12mm - [id number] Implanted:Qty: 1 on 08/14/2016 by Rosa Isela Driscoll MD at [facility] Explanted:at [facility] (Quantity not on file) [employer]:CARDIAC RHYTHM MGMT [id number] / / [id number] Patella Backed Metal Tritanium Asymmetric A 38 X 11 - [id number] Implanted:Qty: 1 on 01/30/2017 by Edgar Mckeon MD at [facility] Right: Knee DEB:ORTHOPE DICS 11/19/2021 5552-L-381 / / [id number] Component Femoral Cr Triathlon #6 Right - [id number] Implanted:Qty: 1 on 01/30/2017 by Edgar Mckeon MD at [facility] Right: Knee DEB:ORTHOPE DICS 12/13/2021 5517-F-602 / / [id number] Baseplate Tibial Tritanium Triathlon Size 7 - [id number] Implanted:Qty: 1 on 01/30/2017 by Edgar Mckeon MD at [facility] Right: Knee DEB:ORTHOPE DICS 11/11/2021 5536-B-700 / / [id number] Insert Bearing Tibial Cs Triathlon X3 Sz 7 11mm - [id number] Implanted:Qty: 1 on 01/30/2017 by Edgar Mckeon MD at [facility] Right: Knee DEB:ORTHOPE DICS 09/05/2021 5531-G-711 / / [id number] Ins Tib 7 10mm Kn X3 Crcte Sub Trthln - [id number] Implanted:Qty: 1 on 02/13/2021 by Edgar Mckeon MD at [facility] Left: Knee DEB:ORTHOPE DICS [id number] 10/23/2024 5531-G-710 -E / / [id number] Patlr 49k42xk Triath Tritan Mtl Asym Kn - [id number] Implanted:Qty: 1 on 02/13/2021 by Edgar Mckeon MD at [facility] Left: Knee DEB:ORTHOPE DICS [id number] 12/04/2025 5552-L-401 / / [id number] Comp Fem Sz6 Triath Lt Kn Cr Ncem Periapt Ctd Bead - [id number] Implanted:Qty: 1 on 02/13/2021 by Edgar Mckeon MD at [facility] Left: Knee DEB:ORTHOPE DICS [id number] 12/05/2025 5517-F-601 / / [id number] Baseplate Tib Sz7 Total Stabilized Revisn Triath Tritan - [id number] Implanted:Qty: 1 on 02/13/2021 by Edgar Mckeon MD at [facility] Left: Knee DEB:ORTHOPE DICS [id number] 08/31/2025 5536-B-700 / / [id number] Screw 6.5x25mm Trident Caitlin Ss Hex Thrd St Lpro Actb Hip - [id number] Implanted:Qty: 1 on 10/01/2022 by Edgar Mckeon MD at [facility] Left: Hip DEB:ORTHOPE DICS [id number] 08/09/2027 3394-8737 / / [id number] Liner Actb Sz-F 46mm Mdm Ncem Prim Cocr - [id number] Implanted:Qty: 1 on 10/01/2022 by Edgar Mckeon MD at [facility] Left: Hip DEB:ORTHOPE DICS [id number] 07/04/2027 626-00-46F / / [id number] Cup Actb Trident Ii Sz-F 56mm Clstr Scr 5hl Tritan Hap Prim - [id number] Implanted:Qty: 1 on 10/01/2022 by Edgar Mckeon MD at [facility] Left: Hip DEB:ORTHOPE DICS [id number] 04/28/2027 702-04-56F / / [id number] Screw 6.5x25mm Trident Caitlin Ss Hex Thrd St Lpro Actb Hip - [id number] Implanted:Qty: 1 on 10/01/2022 by Edgar Mckeon MD at [facility] Left: Hip DEB:ORTHOPE DICS [id number] 08/21/2027 5090-6396 / / [id number] Insert X 3 Sikhism 28mm Adm/Mdm 28/52mm Size 46f - [id number] Implanted:Qty: 1 on 10/01/2022 by Edgar Mckeon MD at [facility] Left: Hip DEB:ORTHOPE DICS [id number] 02/03/2027 7236-2-852 / / [id number] Stem Sz6 45mm Ofst Accolade Ii Prim Recon Ti Plasm Bivins Ctd - [id number] Implanted:Qty: 1 on 10/01/2022 by Edgar Mckeon MD at [facility] Left: Hip DEB:ORTHOPE DICS [id number] 07/21/2027 4355-2156 / / [id number] Head Fem V-40 28mm +0mm Nk Biolox Delta Cerm Tapr Prim Mod - [id number] Implanted:Qty: 1 on 10/01/2022 by Edgar Mckeon MD at [facility] Left: Hip DEB:ORTHOPE DICS [id number] 07/24/2027 6570-0-128 / / [id number] Procedures Procedure Name Priority Date/Time Associated Diagnosis Comments HEMOGLOBIN A1C Routine 10/01/2022 12:30 PM EST NE US ABDOMINAL AORTA WELL SCREEN Routine 04/16/2022 9:16 AM EDT Tobacco abuse COMPREHENSIVE METABOLIC PANEL Routine 02/05/2021 10:01 AM EDT Pre-op testing LIPID PANEL REFLEX Routine 04/09/2019 12 :22 PM EDT Hyperlipidemia, unspecified hyperlipidemia type from Last 3 Months or Most Recently Relevant to Health Maintenance Results * (ABNORMAL) HEMOGLOBIN A1C (10/01/2022 12:30 PM EST) Hgb A1C 7.1(H) 4.2 - 5.6 % 10/01/2022 2:09 PM EST [email or web address] Est. Avg Glucose 157 mg/dL 10/01/2022 2:09 PM EST [email or web address] Blood VENOUS BLOOD / Unknown Venipuncture / Unknown 10/01/2022 12:30 PM EST 10/01/2022 1:44 PM EST Narrative [facility] [employer] [facility] - 10/01/2022 2:09 PM EST REFERENCE RANGE: Normal: 4.0-5.6% Pre-diabetes: 5.7-6.4% Provisional diagnosis of diabetes: >6.4% Hgb F>10% and anything which shortens red cell survival, such as hemolytic anemia, or unstable hemoglobin variants such as HbSS, HbSC, or HbCC, will lower the HbA1c value associated with a given level of glycemic control. us Aj Kim MD CHEMISTRY ORDERABLES Final Resu lt [email or web address] [address] [place] [address] , [place] [address] * [facility] ABDOMINAL AORTA WELL SCREEN (04/16/2022 9:16 AM EDT) Anatomical Region Laterality Modality Abdomen, Vascular Vascular Imagi ng 04/16/2022 9:08 AM EDT Impressions 04/16/2022 2:48 PM EDT Conclusions * No evidence of AAA. Narrative Procedure Note Truong Almazan MD - 04/16/2022 IMPRESSION Conclusions * No evidence of AAA. us Terry Chiang MD IMG VASCULAR ORDERABLES Final Re sult * (ABNORMAL) COMPREHENSIVE METABOLIC PANEL (02/05/2021 10:01 AM EDT) Sodium 142 136 - 145 mmol/L 02/05/2021 10:44 AM EDT [facility] Potassium 4.2 3.5 - 5.0 mmol/L 02/05/2021 10:44 AM EDT [facility] Chloride 109(H) 98 - 107 mmol/L 02/05/2021 10:44 AM EDT [facility] Total CO2 23 22 - 29 mmol/L 02/05/2021 10:44 AM EDT [facility] Anion Gap 10 7 - 16 mmol/L 02/05/2021 10:44 AM EDT [facility] Calcium 9.4 8.8 - 10.4 mg/dL 02/05/2021 10:44 AM EDT [facility] Glucose Lvl 150(H) 82 - 100 mg/dL 02/05/2021 10:44 AM EDT [facility] BUN 21 8 - 23 mg/dL 02/05/2021 10:44 AM EDT [facility] Creatinine 0.85 0.67 - 1.30 mg/dL 02/05/2021 10:44 AM EDT [facility] Albumin 3.9 3.2 - 4.6 gm/dL 02/05/2021 10:44 AM EDT [facility] Total Protein 6.7 6.4 - 8.3 gm/dL 02/05/2021 10:44 AM EDT [facility] Bili Total 0.6 0.1 - 1.4 mg/dL 02/05/2021 10:44 AM EDT [facility] ALT 22 <=41 U/L 02/05/2021 10:44 AM EDT [facility] AST 21 <=40 U/L 02/05/2021 10:44 AM EDT [facility] Alk Phos 97 40 - 129 U/L 02/05/2021 10:44 AM EDT [facility] GFR Afr Am 107 >=60 mL/min/1.7 3 m2 02/05/2021 10:44 AM EDT [facility] GFR Non Afr Am 93 >=60 mL/min/1.7 3 m2 02/05/2021 10:[facility] Comment: This estimated GFR was calculated using CKD-EPI equation which is modified based on ethnicity for Non Americans and Americans. Both results are reported since it is not always possible to determine the patient's ethnicity. This equation should only be used for individuals 18 and older. It has not been validated for use with the elderly (>70 years), women, or in some racial or ethnic subgroups, such as Hispanics. The equation will be less accurate in people with differences in nutritional status or muscle mass. Blood VENOUS BLOOD / Unknown Venipuncture / Unknown 02/05/2021 10:01 AM EDT 02/05/2021 10:07 AM EDT us Edgar Mckeon MD CHEMISTRY ORDERABLES Final R esult [facility] [address] [facility], [place] [address] [facility] [address] [place] [address] * (ABNORMAL) LIPID PANEL REFLEX (04/09/2019 12:22 PM EDT) Cholesterol 94 <=200 mg/dL 04/09/2019 4:08 PM EDT [facility] Comment: < 200 Desirable 200 - 239 Borderline High >= 240 High Triglyceride 123 <=150 mg/dL 04/09/2019 4:08 PM EDT [facility] Comment: < 150 Normal 150 - 199 Borderline High 200 - 499 High >= 500 Very High HDL 27(L) >=40 mg/dL 04/09/2019 4:08 PM EDT [facility] Comment: > 60 Optimal 40 - 60 Acceptable < 40 Low LDL Calculated 42 <=100 mg/dL 04/09/2019 4:08 PM EDT [facility] Non-HDL-C Calculated 67 <=129 mg/dL 04/09/2019 4:08 PM EDT [facility] Comment: <130 Desirable 130-159 Above Desirable 160-189 Borderline High 190-219 High >= 220 Very High Fasting Specimen? Yes None 019 4:08 PM EDT [facility] Blood Venipuncture / Unknown 04/09/2019 12:22 PM EDT 04/09/2019 12:22 PM EDT us Terry Chiang MD CHEMISTRY ORDERABLES Final Resul t [facility] [address] [facility] , [place] [address] from Last 3 Months or Most Recently Relevant to Health Maintenance [place] [address] [place] [address] MEDICARE PPO MR [facility] MEDICARE PPO MR Advance Directives For more information, please contact: [phone] * Full Code (Latest Code Status on File) Date Activated Date Inactivated Comments 10/01/2022 11:20 AM 10/02/2022 5:16 PM * Full Code Date Activated Date Inactivated Comments 02/13/2021 5:05 PM 02/14/2021 8:28 PM * Full Code Date Activated Date Inactivated Comments 01/30/2017 3:49 PM 02/01/2017 5:06 PM Care Teams Columnist Relationship Specialty Start Date End Date Sharif Cavazos MD [address] [place] [address] [place] [address] PCP - General Family Medicine 08/25/12 Terry Chiang MD [address] [place] [address] [place] [address] Physician Internal Medicine-Cardiovascular Disease 07/07/12
--- OUTSIDE RECORDS SUMMARY | 2025-07-18 09:31 | XMS_ITS | Clinical Summary ---
Author Organization [facility] Address [address] [place] [address] Care Team Providers Care Product Lead Name Role Phone Sharif Cavazos MD Primary Care Provider [phone] Source Comments This information has been disclosed to you from confidential records protectedfrom disclosure by state law. You shall make no further disclosure of thisinformation without the specific, written, and informed release of theindividual to whom it pertains, or as otherwise permitted by law. A generalauthorization for the release of medical or other information is not sufficientfor the purposes of therelease of HIV test results or diagnoses. [id number] [facility] Allergies Active Allergy Reactions Criticality Noted Date Comments Penicillins 07/21/2012 Doesn't know-happened as a child Medications atorvastatin (LIPITOR) 40 MG tablet TAKE 1 TABLET BY MOUTH DAILY AT NIGHT. 11/20/2017 Active bisoprolol (ZEBETA) 5 MG tablet TAKE 1 TABLET BY MOUTH DAILY. 12/05/2017 Active ticagrelor 60 mg Tab Take by mouth. 01/06/2018 Active amlodipine-benaz epril (LOTREL) 10-20 mg per capsule 02/24/2018 Active nitroGLYCERIN (NITROSTAT) 0.[address] 1 TABLET UBDER TONGUE AT FIRST SIGN OF CHEST PAIN, MAY REPEAT UP TO 3 DOSES WITHIN A 15 MINUTE PERIOD, IF NO RELIEF GO TO ER. 09/18/2017 Active naproxen sodium (ANAPROX) 220 MG tablet Take by mouth. Active famotidine (PEPCID) 20 MG tablet Take by mouth. Active Social History Tobacco Use Types Packs/Day Years Used Date Smoking Tobacco: Never Assessed Sex and Gender Information Value Date Recorded Sex Assigned at Not on file Legal Sex Male 8:09 PM EST Gender Identity Not on file Sexual Orientation Not on file Plan of Treatment Not on file Insurance BLUE [employer] Care Teams Product Lead Relationship Specialty Start Date End Date Sharif Cavazos MD [address] [place] [address] PCP - General Family Medicine 03/24/18
--- OUTSIDE RECORDS SUMMARY | 2025-07-18 09:31 | XMS_ITS | Encounter Summary ---
Author Organization [facility] Address [address] [place] [address] Care Team Providers Care Cad Intern Name Role Phone Sharif Cavazos MD Primary Care Provider [phone] Source Comments This information has been disclosed [...] release of HIV test results or diagnoses. [id number] Encounter Details Date Type Department Care Team (Late st Contact Info) Description 03/24/2018 Orders Only PROVIDER DERMATOLOGY [address] [place] [id number] Matt Gardner MD Social History Tobacco Use [...] call patient with no additional treatment needed. documented in this encounter Plan of Treatment Not on file documented as of this encounter Procedures Procedure Name Priority Date/Time Associated Diagnosis Comments SKIN / NAIL BIOPSY 03/24/2018 3: 44 PM EDT documented in this encounter Results * Skin / nail biopsy (03/24/2018 3:44 PM EDT) 03/24/2018 3:44 PM EDT 03/24/2018 3:44 PM EDT Narrative [facility] - 03/26/2018 12:59 PM EDT Accession Number: [id number] Biopsy Site: A) R buttock Biopsy Date: 03/24/2018 Impression: R/O irritated skin tag Gross Description: A specimen of skin was received [id number] MICRO EXAM: There is a polypoid nodule. The core of the lesion consists of collagen bundles and a small amount of fat. 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 The core of the lesion consists of collagen bundles and a small amount of fat. 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
== END 2025-07-14 23:59 ==
LOC: LAB.DROPOF 07-18 09:26
PROVIDERS: PCP Nurse Practitioner; Visit Provider Nurse Practitioner
DX: E55.9 Vitamin D deficiency, unspecified (principal); I10 Essential (primary) hypertension; I25.10 Atherosclerotic heart disease of native coronary artery without angina pectoris; E11.9 Type 2 diabetes mellitus without complications; Z79.899 Other long term (current) drug therapy; Z11.59 Encounter for screening for other viral diseases
CPT/HCPCS: 80053; 80061; 82043; 82306; 82570; 82607; 84443; 85025; 86803; 87389